=== PATIENT | female | born 1935 | race Caucasian/White ===

== ENCOUNTER 2016-12-12 11:26 | Inpatient (IN) ==
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
[2016-12-12 12:02] LABS: Basophils % 0.5 %; Eosinophils # 0.1 K/mcL (0.0-0.6); Eosinophils % 1.2 %; Hematocrit 45.1 % (35.3-44.9); Hemoglobin 15.6 g/dL (11.5-15.4); Immature Granulocytes % 0.5 % (0-4); Lymphocytes # 1.4 K/mcL (0.6-4.6); Lymphocytes % 18.6 %; Mean Corpuscular HGB Conc 34.6 g/dL (31.6-35.5); Mean Corpuscular Hemoglobin 32.2 pg (28.0-33.3); Mean Corpuscular Volume 93.2 fL (83.0-100.0); Mean Platelet Volume 10.3 fL (9.4-12.4); Monocytes # 0.5 K/mcL (0.0-1.3); Monocytes % 7.1 %; Neutrophils # 5.3 K/mcL (1.6-8.9); Platelet Count 216 K/mcL (140-400); Red Blood Count 4.84 M/mcL (3.82-4.97); Red Cell Distribution Width 12.2 % (11.5-14.5); Segmented Neutrophils % 72.1 %
[2016-12-12 12:04] LABS: INR 1.1
[2016-12-12 12:15] LABS: Alanine Aminotransferase 9 Units/L (0-55); Albumin 3.7 g/dL (3.5-5.0); Albumin/Globulin Ratio 1.1 (1.1-2.2); Alkaline Phosphatase 66 Units/L (38-126); Aspartate Amino Transferase 16 Units/L (5-34); BUN/Creatinine Ratio 22 (6-26); Bilirubin,Total 0.6 mg/dL (0.2-1.2); Blood Urea Nitrogen 18 mg/dL (7-20); Calcium 9.7 mg/dL (8.6-10.8); Carbon Dioxide 23 mEq/L (19-29); Chloride 103 mEq/L (98-109); Globulin 3.5 g/dL (2.4-3.5); Glucose 132 mg/dL (70-99); Lipase 22 Units/L (8-78); Magnesium 1.8 mg/dL (1.6-2.6); Osmolality,Calculated 294 (280-300); Potassium 4.1 mEq/L (3.5-4.5); Sodium 140 mEq/L (136-145); Total Protein 7.2 g/dL (6.0-8.3); eGFR For African Americans > 60 (> 60); eGFR For Non-African Americans > 60 (> 60)
[2016-12-12 12:35] LABS: Thyroid Stimulating Hormone 1.154 mcIU/mL (0.350-4.840)
[2016-12-12 15:27] LABS: Bilirubin,Urine Moderate (Negative); Blood,Urine Trace-intact (Negative); Clarity,Urine Slightly Cloudy (Clear); Glucose,Urine (UA) Normal (Normal); Ketones,Urine 40 mg/dL (Negative); Leukocyte Esterase,Urine Negative (Negative); Nitrite,Urine Negative (Negative); PH,Urine 5.5 pH Units (5.0-8.0); Protein,Urine Trace mg/dL (Neg-Trace); Specific Gravity,Urine 1.025 (1.010-1.025); Urobilinogen,Urine Normal (Normal)
[2016-12-12 15:30] LABS: Color,Urine Dark Yellow (Yellow)
[2016-12-12 15:37] LABS: RBC,Urine 0-3 per hpf (0-3); Squamous Epithelial Cell,Urine Few per lpf (None-Few)
[2016-12-12 15:38] LABS: Amorphous Sediment,Urine Many (Few); Bacteria,Urine Many per hpf (None-Few); Mucus,Urine Moderate (Few)
[2016-12-12] MEDS ORDERED: 0.9 % Sodium Chloride 1,000 ML ONE ×2 (18:30→19:03)
[2016-12-12] MEDS ORDERED: Naloxone 0.4 MG/ML INJ IVP PRN (19:03)
[2016-12-12] MEDS: 0.9 % Sodium Chloride 1,000 ML IVC SCH (21:19)
[2016-12-12] MEDS: tiZANidine 4 MG TABLET PO SCH (21:19)
[2016-12-12] MEDS: Mirtazapine 15 MG TABLET PO SCH (21:19)
[2016-12-12] MEDS: Gabapentin 300 MG CAPSULE PO SCH (21:19)
[2016-12-12] MEDS: *HR* HYDROcodone/Acet 5/325 mg TABLET PO PRN (23:22)
--- NOTE | 2016-12-12 23:47 | Electrocardiograph Report ---
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
[2016-12-13 06:16] LABS: Basophils % 0.6 %; Eosinophils # 0.3 K/mcL (0.0-0.6); Eosinophils % 4.3 %; Hematocrit 40.4 % (35.3-44.9); Hemoglobin 13.6 g/dL (11.5-15.4); Immature Granulocytes % 0.4 % (0-4); Lymphocytes % 28.7 %; Mean Corpuscular HGB Conc 33.7 g/dL (31.6-35.5); Mean Corpuscular Volume 95.1 fL (83.0-100.0); Mean Platelet Volume 10.1 fL (9.4-12.4); Monocytes # 0.6 K/mcL (0.0-1.3); Monocytes % 8.7 %; Platelet Count 183 K/mcL (140-400); Red Blood Count 4.25 M/mcL (3.82-4.97); Red Cell Distribution Width 12.2 % (11.5-14.5); Segmented Neutrophils % 57.3 %
[2016-12-13 06:31] LABS: BUN/Creatinine Ratio 19 (6-26); Blood Urea Nitrogen 15 mg/dL (7-20); Calcium 8.6 mg/dL (8.6-10.8); Carbon Dioxide 25 mEq/L (19-29); Chloride 107 mEq/L (98-109); Glucose 94 mg/dL (70-99); Osmolality,Calculated 293 (280-300); Potassium 3.6 mEq/L (3.5-4.5); Sodium 141 mEq/L (136-145); eGFR For African Americans > 60 (> 60); eGFR For Non-African Americans > 60 (> 60)
[2016-12-13] MEDS: 0.9 % Sodium Chloride 1,000 ML IVC SCH ×2 (07:56→15:04)
[2016-12-13] MEDS: Gabapentin 300 MG CAPSULE PO SCH ×2 (07:57→21:41)
[2016-12-13] MEDS: tiZANidine 4 MG TABLET PO SCH ×3 (07:57→21:41)
[2016-12-13] MEDS ORDERED: Cyanocobalamin (B-12) 1,000 MCG/ML VIAL IM ONE (12:04)
--- NOTE | 2016-12-13 12:08 | Internal Med History&Physical ---
Date of Encounter: 12/13/16 Time of Encounter: 11:30 Assessment and Plan (1) Abdominal pain Current visit: Yes Status: Resolved Now resolved. Etiology not certain. Abdominal CT showed cholelithiasis without evidence of cholecystitis, colonic diverticulosis without evidence of diverticulitis, but no other significant pathology. Will not workup further at this time. Qualifiers: Abdominal location: right lower quadrant Qualified Code(s): R10.31 - Right lower quadrant pain (2) Low vitamin B12 level Current visit: Yes Status: Acute B12 level was 146 on 11/22/2016. We will give B12 1000 micrograms IM today. (3) Weakness Current visit: Yes Status: Acute She states she has had progressive weakness over the past 2 months and is barely able to walk now. Will order PT and OT evaluation. (4) Weight loss Current visit: Yes Status: Acute Etiology not determined. No evidence of malignancy was seen on chest, abdomen, and pelvic CT. TSH was normal. Internal Medicine - H&P: HPI Chief complaint: Abdominal pain Admitted From: Home Plans for Post Hospital Care: Home History of present illness: Ms. Mandujano is a 81 year old female who came to the emergency room at the recommendation of her home health nurse after patient complained of abdominal pain onset earlier the day of admission. She describes a right lower cramping discomfort. There was no nausea vomiting or diarrhea. She has not had previous similar pains. She was evaluated in emergency room and admitted to [facility] floor for ongoing care needs. She states she is pain-free now and feels back to her baseline. Denies known disorders of her liver gallbladder or exocrine pancreas. Past Med Surg Social Fam HX - Past Medical History Medical history: COPD, coronary artery disease, hyperlipidemia, hypertension, TIA Psychiatric history: no psych history - Social History Smoking Status: Current every day smoker Smokeless Tobacco Status: No Alcohol use: none Drug use: none - Family History Mother Age: 60 Family Member Ethnicity: Non- Living Status: Age at : 60 Hx Family Medical Disorders: Yes (Stroke) Internal Medicine - H&P: Meds Clopidogrel [Plavix] 75 mg PO DAILY 12/12/16 [History] Gabapentin [Neurontin] 600 mg PO BID 12/12/16 [History] HYDROcodone/Acet 5/325 mg [[place] 5-325 mg] 1 tab PO Q6H PRN 12/12/16 [History] Lisinopril [Zestril] 5 mg PO DAILY 12/12/16 [History] Mirtazapine [Remeron] 15 mg PO HS 12/12/16 [History] Pravastatin Sodium [Pravachol] 40 mg PO HS 12/12/16 [History] Tizanidine HCl 2 mg PO TID 12/12/16 [History] Allergies No Known Allergies Allergy (Verified 12/12/16 11:30) All Systems PM: A 10-system review of systems was performed and is negative for pertinent findings except as documented above in the HPI. Review of systems: Gen.: She states her weight has decreased at least 25 pounds in the past year because of poor appetite and oral intake. Cardiovascular: She has history of hypertension and had an aortic aneurysm endograft repair. She denies [place] heart failure angina DVT or pulmonary most Respiratory: She smokes since age 19 up to 1 pack per day. She uses oxygen at home and has a diagnosis COPD. She denies evaluation for RAMYA GI: As per history of present illness : She has had occasional urinary tract infections. She denies other kidney or bladder disorders Neurologic: She denies large distribution strokes or seizures Endocrine: She has hyperlipidemia but denies diabetes or thyroid disease Hematology/oncology: She denies blood disorders cancers or anemia Psychiatric: She has feelings of depression at times but does not take medication. She denies other mental health illness Musk skeletal: She has DJD but denies gout or other bone joint or muscle disorders. - Constitutional Vitals: Temp Pulse Resp BP Pulse Ox 98.1 F 75 17 159/83 94 12/13/16 06:18 12/13/16 06:18 12/13/16 06:18 12/13/16 06:18 12/13/16 10:57 Exam: Gen.: She is a well developed well-nourished female sitting in a chair who appears in no acute distress HEENT: Head is atraumatic and normocephalic. Eyes: EOMI. There is no scleral icterus. Mouth: Mucosa is moist. Neck: Supple and nontender. There is no thyromegaly or adenopathy noted. Heart: Regular without murmurs gallops or ectopics Lungs: No wheezes or crackles are heard. Abdomen: Soft and nontender. No masses or guarding are noted. Exam is limited because she is in the seated position. Extremities: There is no cyanosis edema or clubbing noted. Dorsalis pedis and posttibial pulses are 1-2 over 2 bilaterally. Neurologic: Mental status: She is talkative and a good historian. Cranial nerves: Smile is symmetric. Forehead wrinkles bilaterally. Tongue protrudes midline. EOMI. Motor: There is no pronator drift. Cerebellar: Finger to nose intact bilaterally. Skin: Warm and dry Internal Med - H&P Results - Labs CBC & Chem 7: 12/13/16 06:07 12/13/16 06:07 Labs: Short CBC 12/13/16 Range/Units 06:07 WBC 7.0 (4.3-11.1) K/mcL Hgb 13.6 D (11.5-15.4) g/dL Hct 40.4 (35.3-44.9) % Plt Count 183 (140-400) K/mcL Neutrophils # 4.0 (1.6-8.9) K/mcL BMP 12/13/16 06:07 Sodium 141 Potassium 3.6 Chloride 107 Carbon Dioxide 25 BUN 15 Creatinine 0.79 Glucose 94 Calcium 8.6
[2016-12-13] MEDS: Mirtazapine 15 MG TABLET PO SCH (21:41)
[2016-12-14] MEDS: *HR* HYDROcodone/Acet 5/325 mg TABLET PO PRN (04:35)
[2016-12-14] MEDS: Gabapentin 300 MG CAPSULE PO SCH ×2 (08:08→20:12)
[2016-12-14] MEDS: tiZANidine 4 MG TABLET PO SCH ×3 (08:08→20:13)
--- NOTE | 2016-12-14 12:16 | Internal Med Progress Note ---
Date of Encounter: 12/14/16 Time of Encounter: 12:10 - Assessment and plan (1) Abdominal pain Current Visit: Yes Status: Resolved Assessment and plan: December 14. Remains resolved. Will not workup further. Qualifiers: Abdominal location: right lower quadrant Qualified Code(s): R10.31 - Right lower quadrant pain (2) Low vitamin B12 level Current Visit: Yes Status: Acute Assessment and plan: December 14. B12 level was 146 on 11/22/2016. She received B12 1000 micrograms IM yesterday. Will start on oral B12 supplement. (3) Weakness Current Visit: Yes Status: Acute Assessment and plan: December 14. Continue PT and OT intervention. She will likely transfer to swing bed and/or [facility] after qualifying stay. (4) Weight loss Current Visit: Yes Status: Acute Assessment and plan: December 14. Etiology not determined. No evidence of malignancy was seen on chest abdomen and pelvic CT. TSH was normal. - Subjective Interval history: December 14. She has no new complaints and feels okay. No recurrence of abdominal pain. I told her and her family she had been approved to change from observation status to inpatient status. - Constitutional Vitals: Temp Pulse Resp BP Pulse Ox 97.5 F L 77 18 90/47 93 12/14/16 10:20 12/14/16 10:20 12/14/16 10:20 12/14/16 10:20 12/14/16 10:20 Exam: She is sitting in a chair at bedside eating lunch. Her affect is bright and cheerful. I reviewed her medications and lab results. Internal Medicine: Result - Labs CBC & Chem 7: 12/13/16 06:07 12/13/16 06:07 - ABG Interpretation ABG results: PT/INR, D-dimer PT 12.0 Seconds (9.4-12.1) 12/12/16 11:48 Consult Discharge Plan - Plan Referrals: Casey Roy MD [Primary Care Provider] - 1 week
[2016-12-14] MEDS: Mirtazapine 15 MG TABLET PO SCH (20:13)
[2016-12-15] MEDS: *HR* HYDROcodone/Acet 5/325 mg TABLET PO PRN ×2 (05:27→19:56)
[2016-12-15] MEDS: *HR* Enoxaparin 40 MG/0.4 ML SYRINGE SQ SCH (05:27)
[2016-12-15] MEDS: Gabapentin 300 MG CAPSULE PO SCH ×2 (08:04→21:08)
[2016-12-15] MEDS: tiZANidine 4 MG TABLET PO SCH (08:06)
--- NOTE | 2016-12-15 09:37 | Internal Med Progress Note ---
Date of Encounter: 12/15/16 Time of Encounter: 09:25 - Assessment and plan (1) Abdominal pain Current Visit: Yes Status: Resolved Assessment and plan: December 14. Remains resolved. Will not workup further. Qualifiers: Abdominal location: right lower quadrant Qualified Code(s): R10.31 - Right lower quadrant pain (2) Low vitamin B12 level Current Visit: Yes Status: Acute Assessment and plan: December 14. B12 level was 146 on 11/22/2016. She received B12 1000 micrograms IM yesterday. Will start on oral B12 supplement. (3) Weakness Current Visit: Yes Status: Acute Assessment and plan: December 14. Continue PT and OT intervention. She will likely transfer to swing bed and/or [facility] after qualifying stay. December 15. Continue PT/OT. Anticipate discharge to [facility] December 18. Family seemed agreeable to not transfer to [facility] but do outpatient neurologic consult. (4) Weight loss Current Visit: Yes Status: Acute Assessment and plan: December 14. Etiology not determined. No evidence of malignancy was seen on chest abdomen and pelvic CT. TSH was normal. - Subjective Interval history: December 14. She has no new complaints and feels okay. No recurrence of abdominal pain. I told her and her family she had been approved to change from observation status to inpatient status. December 15. She has no new complaints and feels well. Family inquired last evening about her being transferred [facility] for neurologist evaluation. I explained to them that she had low B12 level documented that was treated. 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 I explained that transfer to inpatient service was probably not warranted but she could have neurologic consult done as an outpatient - Constitutional Vitals: Temp Pulse Resp BP Pulse Ox 97.9 F 78 18 123/55 93 12/15/16 06:55 12/15/16 06:55 12/15/16 06:55 12/15/16 06:55 12/15/16 06:55 Exam: She is sitting in a chair at bedside. She is very appropriate in conversation with no deficits identified. Her affect is bright and cheerful. Motor exam is grossly normal without formal testing done. I reviewed her medications and lab results and head CT report. Internal Medicine: Result - Labs CBC & Chem 7: 12/13/16 06:07 12/13/16 06:07 - ABG Interpretation ABG results: PT/INR, D-dimer PT 12.0 Seconds (9.4-12.1) 12/12/16 11:48 Consult Discharge Plan - Plan Referrals: Casey Roy MD [Primary Care Provider] - 1 week
[2016-12-15] MEDS ORDERED: tiZANidine 4 MG TABLET PO PRN (09:43)
[2016-12-15] MEDS: Mirtazapine 15 MG TABLET PO SCH (21:07)
[2016-12-16] MEDS: *HR* HYDROcodone/Acet 5/325 mg TABLET PO PRN ×3 (02:14→19:57)
[2016-12-16] MEDS: *HR* Enoxaparin 40 MG/0.4 ML SYRINGE SQ SCH (06:01)
[2016-12-16] MEDS: Nicotine 21 MG PATCH.TD24 TD SCH ×2 (06:04→10:07)
[2016-12-16] MEDS: Cyanocobalamin (B-12) 1,000 MCG TABLET PO SCH (08:22)
[2016-12-16] MEDS: Gabapentin 300 MG CAPSULE PO SCH ×2 (08:22→19:57)
--- NOTE | 2016-12-16 17:00 | Internal Med Progress Note ---
Date of Encounter: 12/16/16 Time of Encounter: 16:50 - Assessment and plan (1) Abdominal pain Current Visit: Yes Status: Resolved Assessment and plan: December 14. Remains resolved. Will not workup further. Qualifiers: Abdominal location: right lower quadrant Qualified Code(s): R10.31 - Right lower quadrant pain (2) Low vitamin B12 level Current Visit: Yes Status: Acute Assessment and plan: December 14. B12 level was 146 on 11/22/2016. She received B12 1000 micrograms IM yesterday. Will start on oral B12 supplement. December 16. Continue oral B12 supplement (3) Weakness Current Visit: Yes Status: Acute Assessment and plan: December 14. Continue PT and OT intervention. She will likely transfer to [facility] bed and/or [facility] after qualifying stay. December 15. Continue PT/OT. Anticipate discharge to [facility] December 18. Family seemed agreeable to not transfer to [facility] but do outpatient neurologic consult. (4) Weight loss Current Visit: Yes Status: Acute Assessment and plan: December 14. Etiology not determined. No evidence of malignancy was seen on chest abdomen and pelvic CT. TSH was normal. - Subjective Interval history: December 14. She has no new complaints and feels okay. No recurrence of abdominal pain. I told her and her family she had been approved to change from observation status to inpatient status. December 15. She has no new complaints and feels well. Family inquired last evening about her being transferred [facility] for neurologist evaluation. I explained to them that she had low B12 level documented that was treated. 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 I explained that transfer to inpatient service was probably not warranted but she could have neurologic consult done as an outpatient December 16. She has no new complaints and feels well. Family inquired again yesterday afternoon about her being transferred to [place]. I called [place] but they declined to accept her in transfer. They felt she could be seen by a neurologist as an outpatient if family desired. It is anticipated she will be discharged to [facility] on December 18. - Constitutional Vitals: Temp Pulse Resp BP Pulse Ox 98.9 F 101 16 140/76 95 12/16/16 15:43 12/16/16 15:43 12/16/16 15:43 12/16/16 15:43 12/16/16 15:43 Exam: She is sitting in her room in a chair at bedside resting comfortably. Her affect is bright and cheerful. She is completely appropriate in conversation. Heart was regular rate 84/m. Lungs were clear anteriorly. I reviewed her medications and lab results. Internal Medicine: Result - Labs CBC & Chem 7: 12/13/16 06:07 12/13/16 06:07 - ABG Interpretation ABG results: PT/INR, D-dimer PT 12.0 Seconds (9.4-12.1) 12/12/16 11:48 Consult Discharge Plan - Plan Referrals: Casey Roy MD [Primary Care Provider] - 1 week
[2016-12-16] MEDS: Mirtazapine 15 MG TABLET PO SCH (19:57)
[2016-12-17] MEDS: *HR* Enoxaparin 40 MG/0.4 ML SYRINGE SQ SCH (06:17)
[2016-12-17] MEDS: Gabapentin 300 MG CAPSULE PO SCH ×2 (08:56→19:45)
[2016-12-17] MEDS: Nicotine 21 MG PATCH.TD24 TD SCH (08:56)
[2016-12-17] MEDS: Cyanocobalamin (B-12) 1,000 MCG TABLET PO SCH (08:56)
--- NOTE | 2016-12-17 09:16 | Internal Med Progress Note ---
Date of Encounter: 12/17/16 Time of Encounter: 09:10 - Assessment and plan (1) Abdominal pain Current Visit: Yes Status: Resolved Assessment and plan: December 14. Remains resolved. Will not workup further. Qualifiers: Abdominal location: right lower quadrant Qualified Code(s): R10.31 - Right lower quadrant pain (2) Low vitamin B12 level Current Visit: Yes Status: Acute Assessment and plan: December 14. B12 level was 146 on 11/22/2016. She received B12 1000 micrograms IM yesterday. Will start on oral B12 supplement. December 16. Continue oral B12 supplement (3) Weakness Current Visit: Yes Status: Acute Assessment and plan: December 14. Continue PT and OT intervention. She will likely transfer to [facility] bed and/or [facility] after qualifying stay. December 15. Continue PT/OT. Anticipate discharge to [facility] December 18. Family seemed agreeable to not transfer to [facility] but do outpatient neurologic consult. (4) Weight loss Current Visit: Yes Status: Acute Assessment and plan: December 14. Etiology not determined. No evidence of malignancy was seen on chest abdomen and pelvic CT. TSH was normal. - Subjective Interval history: December 14. She has no new complaints and feels okay. No recurrence of abdominal pain. I told her and her family she had been approved to change from observation status to inpatient status. December 15. She has no new complaints and feels well. Family inquired last evening about her being transferred [facility] for neurologist evaluation. I explained to them that she had low B12 level documented that was treated. 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 I explained that transfer to inpatient service was probably not warranted but she could have neurologic consult done as an outpatient December 16. She has no new complaints and feels well. Family inquired again yesterday afternoon about her being transferred to [place]. I called [place] but they declined to accept her in transfer. They felt she could be seen by a neurologist as an outpatient if family desired. It is anticipated she will be discharged to [facility] on December 18. December 17. She has no new complaints and feels well. - Constitutional Vitals: Temp Pulse Resp BP Pulse Ox 98.2 F 87 28 127/71 95 12/17/16 09:04 12/17/16 09:04 12/17/16 09:04 12/17/16 09:04 12/17/16 09:04 Exam: She is sitting in a chair at bedside resting comfortable. Her affect is bright and cheerful. I reviewed her medications and lab results. Internal Medicine: Result - Labs CBC & Chem 7: 12/13/16 06:07 12/13/16 06:07 - ABG Interpretation ABG results: PT/INR, D-dimer PT 12.0 Seconds (9.4-12.1) 12/12/16 11:48 Consult Discharge Plan - Plan Referrals: Casey Roy MD [Primary Care Provider] - 1 week
[2016-12-17] MEDS: Mirtazapine 15 MG TABLET PO SCH (19:46)
[2016-12-17] MEDS: *HR* HYDROcodone/Acet 5/325 mg TABLET PO PRN (19:46)
[2016-12-18] MEDS: *HR* HYDROcodone/Acet 5/325 mg TABLET PO PRN (06:14)
[2016-12-18] MEDS: *HR* Enoxaparin 40 MG/0.4 ML SYRINGE SQ SCH (06:14)
[2016-12-18 07:07] VITALS: BP 129/85
[2016-12-18] MEDS: Gabapentin 300 MG CAPSULE PO SCH (09:02)
[2016-12-18] MEDS: Cyanocobalamin (B-12) 1,000 MCG TABLET PO SCH (09:02)
[2016-12-18] MEDS: Nicotine 21 MG PATCH.TD24 TD SCH (09:29)
--- NOTE | 2016-12-18 10:02 | Discharge Summary ---
Date of Encounter: 12/18/16 Time of Encounter: 09:40 - Discharge Diagnosis (1) Abdominal pain Priority: Primary Status: Resolved Qualifiers: Abdominal location: right lower quadrant Qualified Code(s): R10.31 - Right lower quadrant pain (2) Low vitamin B12 level Priority: Secondary Status: Acute (3) Weakness Priority: Secondary Status: Acute (4) Weight loss Priority: Secondary Status: Acute - Discharge Medications Prescriptions: HYDROcodone/Acet 5/325 mg [[place] 5-325 mg] 1 tab PO Q6H PRN #120 PRN Reason: Pain Home Medications: Clopidogrel [Plavix] 75 mg PO DAILY 12/12/16 [History] Gabapentin [Neurontin] 600 mg PO BID 12/12/16 [History] Lisinopril [Zestril] 5 mg PO DAILY 12/12/16 [History] Mirtazapine [Remeron] 15 mg PO HS 12/12/16 [History] Cyanocobalamin (B-12) [Vitamin B12] 1,000 mcg PO DAILY tab 12/18/16 [Rx] HYDROcodone/Acet 5/325 mg [[place] 5-325 mg] 1 tab PO Q6H PRN #120 12/18/16 [Rx] Allergies/Adverse Reactions: Allergies No Known Allergies Allergy (Verified 12/12/16 11:30) Date of admission: 12/14/16 12:18 Primary care physician: Casey Roy MD - Patient Status Disposition: Transfer SNF Condition: Fair Functional capacity at discharge: uses cane/walker Overall status at discharge: patient is progressing back to baseline - Discharge Instructions - Diet and Activity Activity: as per physical therapy Diet: advance to your usual diet Hospital course: Ms. Mandujano is a 81 year old female who came to the emergency room at the recommendation of her home health nurse after patient complained of abdominal pain onset earlier the day of admission. She describes a right lower cramping discomfort. There was no nausea vomiting or diarrhea. She has not had previous similar pains. She was evaluated in emergency room and admitted to [facility] for ongoing care needs. Initial orders were written by the emergency room physician. I saw her on December 13 and performed history and physical. She had no further abdominal pain during her hospital stay. B12 level returned low at 146. She was given B12 1000 micrograms IM and started on a daily supplement. She had PT and OT evaluation and made satisfactory progress in therapy. A CT of chest abdomen pelvis showed no evidence of malignancy to explain her reported weight loss. Family in [place] about her being transferred [facility] for further neurologic evaluation. [facility] declined to accept her in transfer. On December 18 arrangements were completed for her to be discharged to [facility] for ongoing therapy. She will follow with me there. - Time Spent with Patient Total time spent providing and/or coordinating discharge services: - Constitutional Vitals: Temp Pulse Resp BP Pulse Ox 98.7 F 77 18 129/85 91 12/18/16 07:05 12/18/16 07:05 12/18/16 07:05 12/18/16 07:05 12/18/16 07:05
--- NOTE | 2016-12-18 10:14 | Physician Discharge Referral ---
ExtendedCare Referral Info Transfer To: [facility] Provider in Charge: Ozzy Provider in Charge after Transfer: PCP Twila) Institutional Level of Care: Skilled - Diagnosis (1) Abdominal pain Priority: Primary Status: Resolved (2) Low vitamin B12 level Priority: Secondary Status: Acute (3) Weakness Priority: Secondary Status: Acute (4) Weight loss Priority: Secondary Status: Acute Prognosis: Good Aware of Diagnosis: Patient, Family Aware of Prognosis: Patient, Family - Transfer Medications Prescriptions: HYDROcodone/Acet 5/325 mg [[place] 5-325 mg] 1 tab PO Q6H PRN #120 PRN Reason: Pain Home Medications: Clopidogrel [Plavix] 75 mg PO DAILY 12/12/16 [History] Gabapentin [Neurontin] 600 mg PO BID 12/12/16 [History] Lisinopril [Zestril] 5 mg PO DAILY 12/12/16 [History] Mirtazapine [Remeron] 15 mg PO HS 12/12/16 [History] Cyanocobalamin (B-12) [Vitamin B12] 1,000 mcg PO DAILY tab 12/18/16 [Rx] HYDROcodone/Acet 5/325 mg [[place] 5-325 mg] 1 tab PO Q6H PRN #120 12/18/16 [Rx] Allergies/Adverse Reactions: Allergies No Known Allergies Allergy (Verified 12/12/16 11:30) - Respiratory Orders Oxygen / L per min (O2 at 2 L/m by nasal cannula as needed to keep saturation 90 % or greater) Smoking Cessation: Smoking cessation has been advised. For more information, call the [facility] Tobacco Quit Line at 5-396-PYPZ-NOW. - Mobility Orders Ambulate - Rehabiliation Orders Rehab Potential: Good Rehab Orders: Evaluation for Physical Therapy, Evaluation for Occupational Therapy CERTIFICATION: I certify that the transfer of the above named patient to an Extended Care Facility is necessary for the continuing treatment of the diagnosis listed. The above information is true and accurate reflection of patient's current condition. Confidential - Redisclosure prohibited without a patient's written consent.
== END 2016-12-18 15:00 | DRG 392 ==
LOC: INPPIK 11:26 → EMEROOPIK 11:26 → INPPIK 18:26
PROVIDERS: ADMIT Internal Medicine; ATTEND Internal Medicine